=== PATIENT | female | born 1975 | race Caucasian/White ===

== ENCOUNTER → 2018-12-25 | Outpatient (CLI) | payer MEDICAID ==
--- NOTE | 2018-12-25 16:30 | RADIOLOGY REPORT (SQ) ---
EXAM DESCRIPTION: T SPINE AP/LAT COMPLETED DATE/TIME: 12/25/2018 4:12 pm REASON FOR STUDY: CHRONIC MIDLINE THORACIC BACK PAIN M54.6 PAIN IN THORACIC SPINE M54.5 LOW BACK P AIN COMPARISON: None. NUMBER OF VIEWS: Two views. TECHNIQUE: AP and lateral radiographic images acquired of the thoracic spine. LIMITATIONS: None. FINDINGS: MINERALIZATION: Normal. ALIGNMENT: Minimal serpiginous thoracic curvature VERTEBRAE: No fracture or bone lesion. Maintained height, normal segmentation. DISCS: Mild multilevel disc height loss and osteophytosis greatest within the thoracolumbar junction HARDWARE: None in the spine. MEDIASTINUM AND SOFT TISSUES: Normal heart size and aortic contour. No soft tissue abnormality. VISUALIZED LUNG HOFF: Clear. OTHER: Chain linda overlie left upper abdomen. IMPRESSION: 1. No evidence of acute bony abnormality. 2. Mild multilevel degenerative change. TECHNICAL DOCUMENTATION: JOB ID: [id number] [employer]- All Rights Reserved Reading location - IP/workstation name: [email or web address]
--- NOTE | 2018-12-25 16:34 | RADIOLOGY REPORT (SQ) ---
EXAM DESCRIPTION: LUMBAR SPINE COMPLETE COMPLETED DATE/TIME: 12/25/2018 4:13 pm REASON FOR STUDY: CHRONIC MIDLINE LOW BACK PAIN WITHOUT SCIATICA M54.6 PAIN IN THORACIC SPINE M54.5 LOW BACK PAIN COMPARISON: None. NUMBER OF VIEWS: 6 views including obliques. TECHNIQUE: AP, lateral, oblique, and sacral radiographic images acquired of the lumbar spine. LIMITATIONS: None. FINDINGS: MINERALIZATION: Normal. SEGMENTATION: Normal. No transitional anatomy. 5 [id number] lumbar vertebral bodies. ALIGNMENT: Mild dextroconvex curvature of the lumbar spine. VERTEBRAE: Maintained height. Mild multilevel endplate change and osteophytosis. DISCS: Mild disc height loss at the thoracolumbar junction and at L4-5 and L5-S1. Multilevel small o steophytes. POSTERIOR ELEMENTS: No pars defect. No fracture. Lower lumbar facet arthropathy. HARDWARE: None in the spine. PARASPINAL SOFT TISSUES: Normal. PELVIS: Intact as visualized. No fractures or worrisome bone lesions. SI joints intact. OTHER: No other significant finding. IMPRESSION: 1. No acute bony abnormality. 2. Mild disc height loss at the thoracolumbar junction and L4-5 and L5-S1. 3. Lower lumbar facet arthropathy. TECHNICAL DOCUMENTATION: JOB ID: [id number] [employer]- All Rights Reserved Reading location - IP/workstation name: [email or web address]
== END ==
LOC: OD 15:49
PROVIDERS: ATTEND Nurse Practitioner Family
DX: M54.6 Pain in thoracic spine (principal); M54.5 Low back pain
CPT/HCPCS: 72070; 72110

== ENCOUNTER → 2019-02-08 | Outpatient (CLI) | payer MEDICAID ==
--- NOTE | 2019-02-18 14:31 | WOMENS IMAGING REPORT ---
EXAM DESCRIPTION: BILAT SCREENING MAMMO W/CAD COMPLETED DATE/TIME: 02/08/2019 11:27 am REASON FOR STUDY: ROUTINE BILATERAL SCREENING;Z12.31 Z12.31 ENCNTR SCREEN MAMMOGRAM FOR MALIGNANT N EOPLASM OF ED COMPARISON: 2016 EXAM PARAMETERS: Standard craniocaudal and mediolateral oblique views of each breast recorded using digital acquisition. Read with the assistance of CAD. .[email or web address] - [employer] Analyst Version 9.2 LIMITATIONS: None. FINDINGS: No suspicious masses, suspicious calcifications or architectural distortion. No areas of c oncern. IMPRESSION: Negative MAMMOGRAM. BIRADS 1 BREAST DENSITY: b. There are scattered areas of fibroglandular density. BIRAD: ASSESSMENT: 1 NEGATIVE RECOMMENDATION: ROUTINE SCREENING COMMENT: The patient has been notified of the results by letter per MQSA requirements. Additional no tification policies are in place for contacting patient with suspicious or incomplete findings. Quality ID #225: The [employer] recommends an annual screening mammogram for women aged 40 years or over. This facility utilizes a reminder system to ensure that all patients receive reminder letters, and/or direct phone calls for appointments. This includes reminders for routine scr eening mammograms, diagnostic mammograms, or other Breast Imaging Interventions when appropriate. Th is patient will be placed in the appropriate reminder system. TECHNICAL DOCUMENTATION: FINDING NUMBER: (1) ASSESSMENT: (1) JOB ID: [id number] [employer]- All Rights Reserved Reading location - IP/workstation name: [email or web address]
== END ==
LOC: WI 11:01
PROVIDERS: ATTEND Nurse Practitioner Family
DX: Z12.31 Encounter for screening mammogram for malignant neoplasm of breast (principal)
CPT/HCPCS: 77067

== ENCOUNTER → 2019-03-15 | Outpatient (CLI) | payer MEDICAID ==
--- NOTE | 2019-03-15 11:31 | RADIOLOGY REPORT (SQ) ---
EXAM DESCRIPTION: MRI LUMBAR SPINE WITHOUT COMPLETED DATE/TIME: 03/15/2019 9:54 am REASON FOR STUDY: M54.16 RADICULOPATHY, LUMBAR REGION M54.16 RADICULOPATHY, LUMBAR REGION COMPARISON: None. TECHNIQUE: Sagittal and Axial imaging includes T1, T2, STIR and gradient echo sequences. Coronal T2/ HASTE imaging. LIMITATIONS: None. FINDINGS: VISUALIZED UPPER ABDOMEN: Limited evaluation. No acute or suspicious findings suggested. SEGMENTATION: No transitional anatomy. The lowest well-developed disc space is labeled L5-S1. ALIGNMENT: Anatomic. VERTEBRAE: Intact. BONE MARROW: Normal. No marrow replacement or reactive changes. Type 2 Modic endplate changes at L1- 2. DISC SIGNAL: Disc desiccation at L1-2, L4-5 and L5-S1. POSTERIOR ELEMENTS: Generally intact. No pars defect evident. HARDWARE: None in the spine. CORD AND CONUS: Normal in size and signal intensity. Conus medullaris terminates at L1-2. SOFT TISSUES: No aortic aneurysm seen. No bulky retroperitoneal adenopathy or mass. No paraspinal mas s or fluid. L1-L2: Disc desiccation with type 2 Modic endplate changes. There is a circumferential disc bulge wi th larger left paracentral component which likely contacts the traversing nerve roots. No evidence o f high-grade spinal canal stenosis. There is mild bilateral neural foraminal narrowing secondary to disc. L2-L3: No significant spinal stenosis or exit foraminal stenosis. L3-L4: No significant spinal stenosis or exit foraminal stenosis. L4-L5: Mild disc desiccation and height loss. No significant spinal stenosis or exit foraminal sten osis. L5-S1: Mild disc desiccation in height loss. No significant spinal stenosis or exit foraminal stenos is. LOWER THORACIC: Incompletely imaged. No stenosis seen. SACRUM: Visualized upper sacrum intact. OTHER: No other significant findings. IMPRESSION: 1. No acute bony abnormality of the lumbar spine. 2. Chronic Modic type 2 endplate change at L1-2 with disc height loss and circumferential disc bulge . Left paracentral disc component likely contacts the traversing nerve roots at that level. No high -grade spinal canal stenosis or neural foraminal narrowing. 3. Mild additional degenerative changes with level specific findings as above. TECHNICAL DOCUMENTATION: JOB ID: [id number]- All Rights Reserved Reading location - IP/workstation name: [email or web address]
== END ==
LOC: RAD 08:38
PROVIDERS: ATTEND Physician Assistant
DX: M51.17 Intervertebral disc disorders with radiculopathy, lumbosacral region (principal)
CPT/HCPCS: 72148

== ENCOUNTER → 2019-10-02 | Outpatient (CLI) | payer MEDICAID ==
[2019-10-02 08:52] LABS: HEMATOCRIT 39.3 % (36.0-47.0); HEMOGLOBIN 13.3 g/dL (12.0-15.5); MEAN CORPUSCULAR HEMOGLOBIN 29.1 pg (27.0-33.4); MEAN CORPUSCULAR HGB CONC 33.7 g/dL (32.0-36.0); MEAN CORPUSCULAR VOLUME 87 fl (80-97); PLATELET COUNT 252 10^3/uL (150-450); RED BLOOD COUNT 4.55 10^6/uL (3.72-5.28); RED CELL DISTRIBUTION WIDTH 12.7 % (11.5-14.0)
[2019-10-02 09:15] LABS: ALBUMIN 3.1 g/dL (3.5-5.0); ALKALINE PHOSPHATASE 111 U/L (38-126); ANION GAP 8 (5-19); ASPARTATE AMINO TRANSFERASE 14 U/L (14-36); BILIRUBIN,DIRECT 0.3 mg/dL (0.0-0.4); BILIRUBIN,TOTAL 0.5 mg/dL (0.2-1.3); BLOOD UREA NITROGEN 5 mg/dL (7-20); CALCIUM 8.6 mg/dL (8.4-10.2); CARBON DIOXIDE 22 mmol/L (22-30); CHLORIDE 105 mmol/L (98-107); CHOLESTEROL 232.79 mg/dL (0-200); GLUCOSE 89 mg/dL (75-110); POTASSIUM 3.9 mmol/L (3.6-5.0); TRIGLYCERIDES 228 mg/dL (<150)
[2019-10-02 09:28] LABS: DIRECT LDL 174 mg/dL (<100)
[2019-10-02 09:37] LABS: VLDL CHOLESTEROL 45.6 mg/dL (10-31)
== END ==
LOC: OD 07:37
PROVIDERS: ATTEND Physician Assistant
DX: E78.5 Hyperlipidemia, unspecified (principal); I49.3 Ventricular premature depolarization; R94.31 Abnormal electrocardiogram [ECG] [EKG]
CPT/HCPCS: 36415; 80048; 80061; 80076; 83735; 84443; 85027

== ENCOUNTER → 2019-11-14 | Outpatient (CLI) | payer MEDICAID ==
--- NOTE | 2019-11-15 08:59 | DRAGON STRESS TEST REPORT ---
EXERCISE CARDIOLITE STRESS TEST USING SINGLE PHOTON EMMISION COMPUTERIZED TOMOGRAPHIC. DATE OF PROCEDURE: November 14, 2019. INDICATION : Abnormal EKG, increased ventricular ectopy CARDIAC RISK FACTORS: None reported by the patient or by the staff RESTING EKG: Sinus rhythm without any baseline ST-T wave changes. STRESS EKG: No significant ST segment changes noted with LexiScan bolus REASON FOR TERMINATION: Dyspnea, fatigue PROCEDURE REPORT: Baseline heart rate 115 beats per minute with blood pressure of 106/69. She was exercised on standard Kleber protocol. Patient exercised for a total of 7 minutes and 10 seconds. Exercise was stopped because of fatigue and shortness of breath. Patient was noted to have increased ventricular ectopy. One triplet noted during exercise. Multiple couplets were noted. However no significant ST segment changes were noted. CONCLUSIONS: No ST segment changes noted but increased ventricular ectopy with one triplet and frequent ventricular couplets noted. NUCLEAR DATA: At rest the patient was given 14.28 millicuries of technetium 99 sestamibi injected intravenously. As per protocol rest gated SPECT images were obtained. Subsequently the stress dose of 40.9 millicuries of technetium 99 sestamibi was injected intravenously at peak exercise. Patient continued to exercise for 1 additional minute.. As per protocol stress gated images were obtained. NUCLEAR INTERPRETATION: Both raw and processed data were used for interpretation. Visual, qualitative, computer-generated quantitative data was used. There was suboptimal myocardial uptake of technetium compound. Motion artifact and soft tissue attenuations were noted. Increased visceral uptake was noted. No definitive areas of transient perfusion defect noted, No definitive areas of fixed perfusion defect or scars noted. EKG gated imaging showed LV EF at 47%, rest and stress gated EF similar visually. T. I D. ratio was 0.85. Lung heart ratio noted to be somewhat increased at 0.41. No significant extracardiac and abnormal radiotracer activities were noted. RV free wall uptake was noted to be WNL. Abnormal uptake was noted in the left breast tissue area. IMPRESSION: Also refer to comments under nuclear interpretation. Also test results needs to be interpreted in the context of pretest probability. Please note that myocardial uptake was suboptimal. 1. No definitive areas of transient perfusion defect noted. Please note patient had marked increased ventricular ectopic activity with exercise, therefore ischemia could be missed. 2. There is no definitive scintigraphic evidence of myocardial infarction/scar. 3. EKG gated imaging shows borderline depressed left ventricular ejection fraction of approx. 47%. 4. Abnormal uptake noted in the left breast area, could be concerning for malignancy. In addition lung uptake was noted to be on the high side. Clinical correlation requested as worse disease and or balanced ischemia could be missed. In approximately 10% of the cases Lexiscan may not cause adequate vasodilatory stress. RECOMMENDATIONS: Findings about abnormal uptake in the breast tissue was reported to referring physician Penny VASQUEZ at Dr. Quinn Faulkner's office. May consider cardiac CTA for further evaluation as myocardial uptake was somewhat suboptimal. Aggressive risk factor modification and medical management. Further evaluation may be needed if continued symptoms or other high risk indicators are noted on clinical evaluation. Close cardiology follow-up is also recommended. Clinical correlation with echocardiogram derived ejection fraction. Inability to exercise by itself can lead to increased cardiovascular event risks. Consider cardiology consultation and or follow-up if clinically indicated. Dr. Daniel Lopez. MD JULIEN Board certified in cardiology and sleep medicine. Board certified in nuclear cardiology, adult echocardiography. MONI
== END ==
LOC: RAD 07:49
PROVIDERS: ATTEND Physician Assistant
DX: R94.31 Abnormal electrocardiogram [ECG] [EKG] (principal)
CPT/HCPCS: 93017; 78452; A9500; Q9969

== ENCOUNTER → 2019-11-20 | Outpatient (CLI) | payer MEDICAID ==
--- NOTE | 2019-11-20 12:07 | RADIOLOGY REPORT (SQ) ---
EXAM DESCRIPTION: CHEST PA/LATERAL IMAGES COMPLETED DATE/TIME: 11/20/2019 11:41 am REASON FOR STUDY: OTHER NONSPECIFIC ABNORMAL FINDING OF LUNG FIELD COMPARISON: None. EXAM PARAMETERS: NUMBER OF VIEWS: two views TECHNIQUE: Digital Frontal and Lateral radiographic views of the chest acquired. RADIATION DOSE: NA LIMITATIONS: none FINDINGS: LUNGS AND PLEURA: No opacities, masses or pneumothorax. No pleural effusion. MEDIASTINUM AND HILAR STRUCTURES: No masses or contour abnormalities. HEART AND VASCULAR STRUCTURES: Heart normal size. No evidence for failure. BONES: No acute findings. HARDWARE: None in the chest. OTHER: No other significant finding. IMPRESSION: NO SIGNIFICANT RADIOGRAPHIC FINDING IN THE CHEST. TECHNICAL DOCUMENTATION: JOB ID: [id number] 2010 [employer] All Rights Reserved Reading location - IP/workstation name: [email or web address]
== END ==
LOC: OD 11:22
PROVIDERS: ATTEND Physician Assistant
DX: R91.8 Other nonspecific abnormal finding of lung field (principal)
CPT/HCPCS: 71046

== ENCOUNTER → 2019-11-27 | Outpatient (CLI) | payer MEDICAID ==
--- NOTE | 2019-11-28 15:36 | WOMENS IMAGING REPORT ---
EXAM DESCRIPTION: 3D DX MAMMO BILAT; U/S BREAST UNILATERAL, COMPL IMAGES COMPLETED DATE/TIME: 11/27/2019 11:10 am; 11/27/2019 11:58 am REASON FOR STUDY: R92.8 OTHER ABNORMAL AND INCONCLUSIVE FINDINGS ON DIAGNOSTIC IMAGING OF ED; LT BR EAST Z80.3,R92.8 R92.8 OTH ABN AND INCONCLUSIVE FINDINGS ON DX IMAGING OF ED COMPARISON: Mammograms 02/08/2019 EXAM PARAMETERS: Standard craniocaudal and mediolateral oblique views of each breast recorded using digital acquisition and breast tomosynthesis. Additional left breast exaggerated craniocaudad view, left breast 90 mediolateral view acquired with digital mammography and tomosynthesis. Left breast ultrasound was also performed. Read with the assistance of CAD: .[employer] - [employer] Assembler Version 9.2 LIMITATIONS: None. FINDINGS: RIGHT BREAST MASSES: No suspicious masses. CALCIFICATIONS: No new or suspicious calcifications. ARCHITECTURAL DISTORTION: None. ASYMMETRY: None noted. OTHER: Overall increase in density of breast parenchyma, likely related to extensive weight loss this year. LEFT BREAST MASSES: No suspicious masses. CALCIFICATIONS: No new or suspicious calcifications. ARCHITECTURAL DISTORTION: None. ASYMMETRY: None noted. OTHER: Overall increase in density of breast parenchyma, likely related to extensive weight loss this year Left breast ultrasound: Left breast ultrasound was performed. No dominant mass. No cysts. No focal acoustic absorption wor risome for malignancy. No dilated ducts. No focal findings. Comparison ultrasound of the right upp er outer quadrant was performed. No focal findings. IMPRESSION: No mammographic evidence for malignancy bilaterally. No sonographic evidence for malign yuval left breast. BREAST DENSITY: b. There are scattered areas of fibroglandular density. BIRAD: ASSESSMENT: 1 Negative. RECOMMENDATION: RECOMMENDED FOLLOW UP: Please continue bilateral screening mammography/tomosynthesis in November 2020 SPECIFIC INTERVENTION/IMAGING/CONSULTATION RECOMMENDED:No additional intervention/ imaging/consultati on needed at this time. COMMUNICATION:The negative/benign results were communicated to the patient. COMMENT: The patient has been notified of the results by letter per MQSA requirements. Additional no tification policies are in place for contacting patient with suspicious or incomplete findings. Quality ID #225: The [employer] recommends an annual screening mammogram for women aged 40 years or over. This facility utilizes a reminder system to ensure that all patients receive reminder letters, and/or direct phone calls for appointments. This includes reminders for routine scr eening mammograms, diagnostic mammograms, or other Breast Imaging Interventions when appropriate. Th is patient will be placed in the appropriate reminder system. TECHNICAL DOCUMENTATION: FINDING NUMBER: (1) ASSESSMENT: (1) JOB ID: [id number] 2010 [employer]- All Rights Reserved Reading location - IP/workstation name: [id number]
--- NOTE | 2019-11-28 15:36 | WOMENS IMAGING REPORT ---
EXAM DESCRIPTION: 3D DX MAMMO BILAT; U/S BREAST UNILATERAL, COMPL IMAGES COMPLETED DATE/TIME: 11/27/2019 11:10 am; 11/27/2019 11:58 am REASON FOR STUDY: R92.8 OTHER ABNORMAL AND INCONCLUSIVE FINDINGS ON DIAGNOSTIC IMAGING OF ED; LT BR EAST Z80.3,R92.8 R92.8 OTH ABN AND INCONCLUSIVE FINDINGS ON DX IMAGING OF DE COMPARISON: Mammograms 02/08/2019 EXAM PARAMETERS: Standard craniocaudal and mediolateral oblique views of each breast recorded using digital acquisition and breast tomosynthesis. Additional left breast exaggerated craniocaudad view, left breast 90 mediolateral view acquired with digital mammography and tomosynthesis. Left breast ultrasound was also performed. Read with the assistance of CAD: .[employer] - [employer] [facility] Room Physician Version 9.2 LIMITATIONS: None. FINDINGS: RIGHT BREAST MASSES: No suspicious masses. CALCIFICATIONS: No new or suspicious calcifications. ARCHITECTURAL DISTORTION: None. ASYMMETRY: None noted. OTHER: Overall increase in density of breast parenchyma, likely related to extensive weight loss this year. LEFT BREAST MASSES: No suspicious masses. CALCIFICATIONS: No new or suspicious calcifications. ARCHITECTURAL DISTORTION: None. ASYMMETRY: None noted. OTHER: Overall increase in density of breast parenchyma, likely related to extensive weight loss this year Left breast ultrasound: Left breast ultrasound was performed. No dominant mass. No cysts. No focal acoustic absorption wor risome for malignancy. No dilated ducts. No focal findings. Comparison ultrasound of the right upp er outer quadrant was performed. No focal findings. IMPRESSION: No mammographic evidence for malignancy bilaterally. No sonographic evidence for malign yuval left breast. BREAST DENSITY: b. There are scattered areas of fibroglandular density. BIRAD: ASSESSMENT: 1 Negative. RECOMMENDATION: RECOMMENDED FOLLOW UP: Please continue bilateral screening mammography/tomosynthesis in November 2020 SPECIFIC INTERVENTION/IMAGING/CONSULTATION RECOMMENDED:No additional intervention/ imaging/consultati on needed at this time. COMMUNICATION:The negative/benign results were communicated to the patient. COMMENT: The patient has been notified of the results by letter per MQSA requirements. Additional no tification policies are in place for contacting patient with suspicious or incomplete findings. Quality ID #225: The [employer] recommends an annual screening mammogram for women aged 40 years or over. This facility utilizes a reminder system to ensure that all patients receive reminder letters, and/or direct phone calls for appointments. This includes reminders for routine scr eening mammograms, diagnostic mammograms, or other Breast Imaging Interventions when appropriate. Th is patient will be placed in the appropriate reminder system. TECHNICAL DOCUMENTATION: FINDING NUMBER: (1) ASSESSMENT: (1) JOB ID: [id number] 2010 [employer]- All Rights Reserved Reading location - IP/workstation name: [id number]
== END ==
LOC: WI 09:46
PROVIDERS: ATTEND Physician Assistant
DX: R92.8 Other abnormal and inconclusive findings on diagnostic imaging of breast (principal)
CPT/HCPCS: 76641; 77066; G0279; 77062

== ENCOUNTER 2019-11-30 06:45 | Inpatient (IN) | payer MEDICAID ==
--- NOTE | 2019-11-30 08:19 | ER Document Report ---
ED General - General Chief Complaint: Abdominal Pain Stated Complaint: abd pain severe bleeding Time Seen by Provider: 11/30/19 08:18 TRAVEL OUTSIDE OF THE [place] IN LAST 30 DAYS: No - HPI Notes: 44-year-old female , LMP 01/2019, last was 22 years ago,had a gastric sleeve in 2018 presents to the emergency room today for evaluation of epigastric abdominal pain that radiates to her lower back that started at 2300 yesterday. Patient states at 230 this morning she had some vaginal bleeding as well as dysuria and then she states she was unable to void. Reports her last pelvic exam was February 2019. Patient states she has irregular periods, states she has had irregular periods since she can remember. Patient is sexually active, has not taken any test, reports her last bowel movement was yesterday, no melena. Patient reports her pain is 5/5. Vomiting, diarrhea. Patient reports epigastric pain is constant. - Related Data Allergies/Adverse Reactions: benzonatate [From Tessalon Perles] Allergy (Unknown, Verified 11/30/19 07:11) diphenhydramine [From Benadryl] Allergy (Unknown, Verified 11/30/19 07:11) Penicillins Allergy (Unknown, Verified 11/30/19 07:11) pseudoephedrine [From Sudafed] Allergy (Unknown, Verified 11/30/19 07:11) triprolidine [From Actifed] Allergy (Unknown, Verified 11/30/19 07:11) Past Medical History - General Information source: Patient - Social History Smoking Status: Never Smoker Chew tobacco use (# tins/day): No Frequency of alcohol use: None Drug Abuse: None Family History: Reviewed & Not Pertinent Patient has homicidal ideation: No Review of Systems - Review of Systems Constitutional: No symptoms reported EENT: No symptoms reported Cardiovascular: No symptoms reported Respiratory: No symptoms reported Gastrointestinal: See HPI Genitourinary: No symptoms reported Female Genitourinary: No symptoms reported Musculoskeletal: No symptoms reported Skin: No symptoms reported Hematologic/Lymphatic: No symptoms reported Neurological/Psychological: No symptoms reported Physical Exam - Vital signs Vitals: Temp Pulse Resp BP Pulse Ox 97.9 F 106 H 18 153/102 H 106 H 11/30/19 06:51 11/30/19 06:51 11/30/19 06:51 11/30/19 06:51 11/30/19 06:51 - Respiratory Respiratory status: No respiratory distress - Cardiovascular Rhythm: Regular Heart sounds: Normal auscultation Murmur: No - Abdominal Inspection: Gravid female Distension: Distended - Genitourinary Notes: no visualized - Back Back: Normal, Nontender - Extremities General upper extremity: Normal inspection General lower extremity: Normal inspection - Neurological Neuro grossly intact: Yes Cognition: Normal Orientation: AAOx4 Course - Re-evaluation Re-evalutation: 11/30/19 12:44 Afebrile vital stable no distress. Ordered ultrasound to assess if patient has a that is viable or if this is a nonpregnancy related abdominal pain. Patient states that she has not had a menstrual cycle since January 2019 but typically only has 2 periods a year. She is sexually active without any type of barrier method to prevent , she has not taken a home test to determine if she is or not. Ultrasound called at 10 AM, patient is 39 weeks and baby's head is in the vaginal canal, Dr. Ki Falk made aware of patients status and patient brought right to L&D from /. nurse called with report 11/30/19 12:47 - Vital Signs Vital signs: Temp Pulse Resp BP Pulse Ox 97.9 F 106 H 18 153/102 H 100 11/30/19 07:05 11/30/19 06:51 11/30/19 06:51 11/30/19 06:51 11/30/19 09:20 - Laboratory Result Diagrams: 11/30/19 11:05 11/30/19 09:00 Laboratory results interpreted by me: 11/30/19 11/30/19 09:00 09:00 WBC 18.6 H RBC 5.30 H Lymph % (Auto) 6.7 L Absolute Neuts (auto) 16.5 H Seg Neutrophils % 88.8 H Sodium 135.4 L Carbon Dioxide 15 L Glucose 129 H Direct Bilirubin 1.0 H AST 145 H ALT 50 H Alkaline Phosphatase 351 H Beta HCG, Quant 26616.00 H Discharge - Discharge Clinical Impression: Active labor Condition: Stable Disposition: LABOR CHECK
[2019-11-30] MEDS ORDERED: ACETAMINOPHEN 325 MG TABLET PO ONE (09:08)
[2019-11-30 09:14] LABS: ABSOLUTE BASOPHILS # (AUTO) 0.1 10^3/uL (0.0-0.2); ABSOLUTE LYMPHOCYTES (AUTO) 1.2 10^3/uL (0.5-4.7); ABSOLUTE MONOCYTES (AUTO) 0.8 10^3/uL (0.1-1.4); ABSOLUTE NEUT (AUTO) 16.5 10^3/uL (1.7-8.2); BASOPHILS % (AUTO) 0.5 % (0-2); HEMATOCRIT 44.1 % (36.0-47.0); HEMOGLOBIN 15.3 g/dL (12.0-15.5); LYMPHOCYTES % (AUTO) 6.7 % (13-45); MEAN CORPUSCULAR HEMOGLOBIN 28.9 pg (27.0-33.4); MEAN CORPUSCULAR HGB CONC 34.7 g/dL (32.0-36.0); MEAN CORPUSCULAR VOLUME 83 fl (80-97); PLATELET COUNT 213 10^3/uL (150-450); SEGMENTED NEUTROPHILS % (AUTO) 88.8 % (42-78); TOTAL CELLS COUNTED % (AUTO) 100 %; WHITE BLOOD COUNT 18.6 10^3/uL (4.0-10.5)
[2019-11-30 09:31] LABS: ALBUMIN 3.7 g/dL (3.5-5.0); ALKALINE PHOSPHATASE 351 U/L (38-126); ANION GAP 13 (5-19); ASPARTATE AMINO TRANSFERASE 145 U/L (14-36); BILIRUBIN,TOTAL 1.3 mg/dL (0.2-1.3); BLOOD UREA NITROGEN 12 mg/dL (7-20); CALCIUM 9.4 mg/dL (8.4-10.2); CARBON DIOXIDE 15 mmol/L (22-30); CHLORIDE 107 mmol/L (98-107); GLUCOSE 129 mg/dL (75-110); POTASSIUM 4.2 mmol/L (3.6-5.0); TOTAL PROTEIN 7.2 g/dL (6.3-8.2)
[2019-11-30] MEDS ORDERED: LIDOCAINE 1% INJ-PF (10 MG/ML) 30 ML SDV ONE (10:09)
[2019-11-30] MEDS ORDERED: OXYTOCIN 10 UNIT/ML VIAL ONE (10:09)
[2019-11-30] MEDS ORDERED: MISOPROSTOL 0.2 MG TABLET ONE (10:09)
[2019-11-30] MEDS ORDERED: OXYTOCIN/0.9 % SODIUM CHLORIDE 30 UNIT/500 ML RTUINJ ONE (10:10)
[2019-11-30] MEDS ORDERED: LABETALOL HCL INJ 20 MG/4 ML DISP.SYRIN IV ONE (10:21)
[2019-11-30] MEDS ORDERED: RINGERS SOLUTION,LACTATED 1,000 ML IV PRN (10:38)
[2019-11-30] MEDS ORDERED: HYDROCODONE/ACETAMINOPHEN 5-325 MG TABLET ONE (11:01)
[2019-11-30] MEDS ORDERED: DIBUCAINE 1% OINTMENT 28 GM TP PRN (11:02)
[2019-11-30] MEDS ORDERED: PSEUDOEPHEDRINE HCL 30 MG TABLET PO PRN (11:02)
[2019-11-30] MEDS ORDERED: ACETAMINOPHEN WITH CODEINE #3 TABLET PO PRN (11:02)
[2019-11-30] MEDS ORDERED: PROMETHAZINE HCL 25 MG SUPP.RECT PR PRN (11:02)
[2019-11-30] MEDS ORDERED: OXYTOCIN/0.9 % SODIUM CHLORIDE 30 UNIT/500 ML RTUINJ IV PRN (11:02)
[2019-11-30] MEDS ORDERED: NA PHOS,M-B/NA PHOS,DI-BA (ADULT) 133 ML ENEMA PR PRN (11:02)
[2019-11-30] MEDS ORDERED: PROMETHAZINE HCL INJ 25 MG/1 ML VIAL IV PRN (11:02)
[2019-11-30] MEDS ORDERED: DIPHENHYDRAMINE HCL 25 MG CAPSULE PO PRN (11:02)
[2019-11-30] MEDS ORDERED: PROMETHAZINE HCL 25 MG TABLET PO PRN (11:02)
[2019-11-30] MEDS ORDERED: BENZOCAINE/MENTHOL AEROSOL SPRAY 56 ML TOP PRN (11:02)
[2019-11-30] MEDS ORDERED: ACETAMINOPHEN 325 MG TABLET PO PRN (11:02)
[2019-11-30] MEDS ORDERED: ACETAMINOPHEN 650 MG SUPP.RECT PR PRN (11:02)
[2019-11-30] MEDS ORDERED: ZOLPIDEM TARTRATE 5 MG TABLET PO PRN (11:02)
[2019-11-30] MEDS ORDERED: MAGNESIUM HYDROXIDE SUSP 30 ML UDCUP PO PRN (11:02)
[2019-11-30] MEDS ORDERED: DIPH/PERTUSS(ACELL)/TETANUS VAC/PF 0.5 ML SYR (>=10YO) IM PRN (11:02)
[2019-11-30] MEDS ORDERED: HYDROCODONE/ACETAMINOPHEN 5-325 MG TABLET PO PRN (11:02)
[2019-11-30] MEDS ORDERED: MEASLES,MUMPS&RUBELLA VACC/PF 0.5 ML VIAL SUBCUT PRN (11:02)
[2019-11-30] MEDS ORDERED: GLYCERIN/WITCH HAZEL LEAF 1 EACH MED..WIPE TP PRN (11:02)
[2019-11-30 11:25] LABS: HEMATOCRIT 42.9 % (36.0-47.0); HEMOGLOBIN 14.4 g/dL (12.0-15.5); MEAN CORPUSCULAR HEMOGLOBIN 28.2 pg (27.0-33.4); MEAN CORPUSCULAR HGB CONC 33.5 g/dL (32.0-36.0); MEAN CORPUSCULAR VOLUME 84 fl (80-97); PLATELET COUNT 173 10^3/uL (150-450); RED BLOOD COUNT 5.11 10^6/uL (3.72-5.28); RED CELL DISTRIBUTION WIDTH 13.9 % (11.5-14.0); WHITE BLOOD COUNT 18.8 10^3/uL (4.0-10.5)
[2019-11-30 11:40] LABS: APPEARANCE,URINE SLIGHTLY-CLOUDY; BILIRUBIN,URINE NEGATIVE (NEGATIVE); COLOR,URINE AMBER; GLUCOSE, URINE NEGATIVE (NEGATIVE); KETONES,URINE 20 mg/dL (NEGATIVE); LEUKOCYTE ESTERASE,URINE NEGATIVE (NEGATIVE); NITRITE,URINE NEGATIVE (NEGATIVE); PROTEIN,URINE 100 mg/dL (NEGATIVE); URINE SPECIFIC GRAVITY 1.026
--- NOTE | 2019-11-30 11:45 | RADIOLOGY REPORT (SQ) ---
EXAM DESCRIPTION: U/S ABDOMEN LIMITED W/O DOP IMAGES COMPLETED DATE/TIME: 11/30/2019 11:13 am REASON FOR STUDY: epigastric, RUQ abd pain since 2300 11/28 COMPARISON: None. TECHNIQUE: Dynamic and static grayscale images acquired of the abdomen and recorded on PACS. Additio nal selected color Doppler and spectral images recorded. LIMITATIONS: None. FINDINGS: PANCREAS: Not seen. Poor acoustical window. LIVER: No masses. Echotexture normal. LIVER VASCULATURE: Normal directional flow of the main portal vein and hepatic veins. GALLBLADDER: Distended gallbladder. Multiple stones and sludge. Pericholecystic fluid. 2 mm wall t hickness. ULTRASOUND-DETECTED BLANCA'S SIGN: Positive. INTRAHEPATIC DUCTS AND COMMON DUCT: CBD and intrahepatic ducts normal caliber. No filling defects. INFERIOR VENA CAVA: Normal flow. AORTA: No aneurysm. RIGHT KIDNEY: Normal size. Normal echogenicity. No solid or suspicious masses. No hydronephrosis. No calcifications. PERITONEAL AND RIGHT PLEURAL SPACE: No ascites or effusions. OTHER: No other significant findings. IMPRESSION: Cholelithiasis and cholecystitis TECHNICAL DOCUMENTATION: JOB ID: [id number] 2010 [employer]- All Rights Reserved Reading location - IP/workstation name: [email or web address]
--- NOTE | 2019-11-30 11:47 | RADIOLOGY REPORT (SQ) ---
EXAM DESCRIPTION: U/S OB LIMITED IMAGES COMPLETED DATE/TIME: 11/30/2019 11:13 am REASON FOR STUDY: vaginal bleeding and abd pain this am. lmp 01/24. COMPARISON: None. TECHNIQUE: Limited transabdominal grayscale ultrasound for evaluation of specific requested obstetri yaz parameters. LIMITATIONS: None. FINDINGS: CERVICAL LENGTH: Completely dilated . FHR: 136 beats per minute. PRESENTATION: Cephalic. Head in the vaginal canal PLACENTA: Not assessed ANATOMY: Not assessed OTHER: Active labor. 39 weeks 3 days. IMPRESSION: Active labor 39 weeks 3 days. heart tones 136. head in the vaginal canal. Trimester of : 3rd trimester TECHNICAL DOCUMENTATION: JOB ID: [id number] 2010 [employer]- All Rights Reserved Reading location - IP/workstation name: [email or web address]
[2019-11-30] MEDS ORDERED: CLINDAMYCIN 900 MG/D5W RTU 900 MG/50 ML RTUPB IV ONE (11:49)
[2019-11-30 11:58] LABS: URINE CREATININE 206.8 mg/dL (15-278); URINE PROTEIN 198.3 mg/dL (<12)
[2019-11-30 12:03] LABS: ABSOLUTE LYMPHOCYTES# (MANUAL) 1.3 10^3/uL (0.5-4.7); ABSOLUTE MONOCYTES # (MANUAL) 0.9 10^3/uL (0.1-1.4); BAND NEUTROPHILS % (MANUAL) 1 % (3-5); BASOPHILS % (MANUAL) 0 % (0-2); EOSINOPHILS % (MANUAL) 0 % (0-6); LYMPHOCYTES % (MANUAL) 7 % (13-45); MONOCYTES % (MANUAL) 5 % (3-13); SEGMENTED NEUTROPHILS % (MAN) 87 % (42-78); TOTAL CELLS COUNTED 100
[2019-11-30 12:04] LABS: RBC MORPHOLOGY COMMENT NORMO-CYTIC/CHROMIC
[2019-11-30 12:04] LABS: URINE AMPHETAMINES SCREEN NEGATIVE; URINE BARBITURATES SCREEN NEGATIVE; URINE BENZODIAZEPINES SCREEN NEGATIVE; URINE COCAINE SCREEN NEGATIVE; URINE MARIJUANA (THC) SCREEN NEGATIVE; URINE METHADONE SCREEN NEGATIVE; URINE PHENCYCLIDINE SCREEN NEGATIVE
[2019-11-30 12:05] LABS: PLATELET CLUMPS PRESENT; PLATELET COMMENT ADEQUATE
[2019-11-30] MEDS ORDERED: LABETALOL HCL 200 MG TABLET ONE (12:39)
[2019-11-30 12:53] LABS: CHLAM PCR NOT DETECTED (NOT DETECT)
[2019-11-30] MEDS: CLINDAMYCIN 900 MG/D5W RTU 900 MG/50 ML RTUPB IV SCH ×2 (13:15→21:32)
[2019-11-30] MEDS: DOCUSATE SODIUM 100 MG CAPSULE PO SCH (19:12)
[2019-11-30] MEDS: FERROUS SULFATE 325 MG TABLET PO SCH (19:12)
[2019-11-30] MEDS: FAMOTIDINE 20 MG TABLET PO SCH (21:31)
[2019-11-30] MEDS ORDERED: LABETALOL HCL 200 MG TABLET PO SCH ×2 (22:00)
[2019-12-01] MEDS: CLINDAMYCIN 900 MG/D5W RTU 900 MG/50 ML RTUPB IV SCH (05:21)
[2019-12-01 08:11] LABS: HEMATOCRIT 34.5 % (36.0-47.0); HEMOGLOBIN 11.8 g/dL (12.0-15.5); MEAN CORPUSCULAR HEMOGLOBIN 28.5 pg (27.0-33.4); MEAN CORPUSCULAR HGB CONC 34.2 g/dL (32.0-36.0); MEAN CORPUSCULAR VOLUME 84 fl (80-97); PLATELET COUNT 188 10^3/uL (150-450); RED BLOOD COUNT 4.14 10^6/uL (3.72-5.28); WHITE BLOOD COUNT 20.8 10^3/uL (4.0-10.5)
[2019-12-01] MEDS: PRENATAL VITAMIN W DHA CAPSULE PO SCH (10:16)
--- NOTE | 2019-12-01 10:16 | PDOC PROGRESS REPORT ---
Subjective-OB Progress Note for:: 12/01/19 - PP Day #1, pt doing well, no PNC w/ this . Elevated LFT's noted w/ some high BP's while in labor. A+, Rubella immune. . Physical Exam (OB) Vital Signs: Temp Pulse Resp BP Pulse Ox 97.8 F 81 18 121/70 99 12/01/19 08:57 12/01/19 08:00 12/01/19 08:00 12/01/19 08:00 12/01/19 08:00 Intake & Output 11/30/19 12/01/19 12/02/19 06:59 06:59 06:59 Intake Total 2500 Balance 2500 Weight 95.368 kg - General General Appearance: Appears well, Alert In distress: None - PIH/Pre-Eclampsia DTR's: 2 + Clonus: Negative Headache: Absent Epigastric Pain: No Visual Changes: No - Maternal Morbidity 59. Maternal Morbidity (serious complications experinced by the mother associated with labor and delivery: None of the above - Lochia Lochia Amount: Scant < 10 ml Lochia Color: Rubra/Red - Abdomen Description: Soft, Round Hernia Present: No Fundal Description: Firm, Midline Fundal Height: u/u - u/2 - Respiratory Respiratory Status: No respiratory distress - Abdominal Distension: No distension Tenderness: Nontender - Genitourinary Genitourinary Note: voiding - Extremities Upper extremity: Normal inspection Lower extremities: Normal inspection - Neurological Cognition: Normal Orientation: AAOx4 - Psychological Associated symptoms: Normal affect, Normal mood - Skin Skin Temperature: Warm Skin Moisture: Dry Objective-Diagnostic Laboratory: 12/01/19 07:36 11/30/19 09:00 11/30/19 11/30/19 11/30/19 10:20 11:05 11:05 WBC 18.8 H RBC 5.11 Hgb 14.4 Hct 42.9 MCV 84 MCH 28.2 MCHC 33.5 RDW 13.9 Plt Count 173 Seg Neutrophils % Not Reportable Urine Color LEI Urine Appearance SLIGHTLY-CLOUDY Urine pH 5.0 Ur Specific [place] 1.026 Urine Protein 100 H Urine Glucose (UA) NEGATIVE Urine Ketones 20 H Urine Blood SMALL H Urine Nitrite NEGATIVE Ur Leukocyte Esterase NEGATIVE Urine WBC (Auto) 3 Urine RBC (Auto) 12 Blood Type A POSITIVE Antibody Screen NEGATIVE 12/01/19 07:36 WBC 20.8 H RBC 4.14 Hgb 11.8 L D Hct 34.5 L MCV 84 MCH 28.5 MCHC 34.2 RDW 14.0 Plt Count 188 Seg Neutrophils % Urine Color Urine Appearance Urine pH Ur Specific [place] Urine Protein Urine Glucose (UA) Urine Ketones Urine Blood Urine Nitrite Ur Leukocyte Esterase Urine WBC (Auto) Urine RBC (Auto) Blood Type Antibody Screen Assessment and Plan(PN) - Assessment and Plan (1) No care in current Qualifiers: Trimester: third trimester Qualified Code(s): O09.33 - Supervision of with insufficient care, third trimester Is this a current diagnosis for this admission?: Yes (2) Elevated liver enzymes Is this a current diagnosis for this admission?: Yes (3) Advanced maternal age (AMA), 40 years or greater Is this a current diagnosis for this admission?: Yes (4) Active labor Is this a current diagnosis for this admission?: Yes (5) Hx of bariatric surgery Is this a current diagnosis for this admission?: Yes Plan:: Routine PP orders, will Rpt LFT's in the am. Ambulation encouraged. - Time Spent with Patient Time with patient: Less than 15 minutes Medications reviewed and adjusted accordingly: Yes - Disposition Anticipated Discharge Disposition: Home, Self Care Anticipated Discharge Timeframe: within 24 hours
[2019-12-01] MEDS: FAMOTIDINE 20 MG TABLET PO SCH ×2 (10:17→21:40)
[2019-12-01] MEDS: FERROUS SULFATE 325 MG TABLET PO SCH ×2 (10:17→17:35)
[2019-12-01] MEDS: SENNOSIDES/DOCUSATE 8.6-50 MG 1 EACH TABLET PO SCH (10:17)
[2019-12-01] MEDS: DOCUSATE SODIUM 100 MG CAPSULE PO SCH ×2 (10:17→17:35)
[2019-12-02 07:59] LABS: ABSOLUTE LYMPHOCYTES (AUTO) 3.6 10^3/uL (0.5-4.7); ABSOLUTE MONOCYTES (AUTO) 0.7 10^3/uL (0.1-1.4); ABSOLUTE NEUT (AUTO) 8.5 10^3/uL (1.7-8.2); BASOPHILS % (AUTO) 0.3 % (0-2); EOSINOPHILS % (AUTO) 0.3 % (0-6); HEMATOCRIT 32.9 % (36.0-47.0); LYMPHOCYTES % (AUTO) 28.1 % (13-45); MEAN CORPUSCULAR HEMOGLOBIN 28.1 pg (27.0-33.4); MEAN CORPUSCULAR HGB CONC 33.3 g/dL (32.0-36.0); MEAN CORPUSCULAR VOLUME 84 fl (80-97); MONOCYTES % (AUTO) 5.1 % (3-13); PLATELET COUNT 221 10^3/uL (150-450); RED BLOOD COUNT 3.91 10^6/uL (3.72-5.28); RED CELL DISTRIBUTION WIDTH 14.3 % (11.5-14.0); SEGMENTED NEUTROPHILS % (AUTO) 66.2 % (42-78); TOTAL CELLS COUNTED % (AUTO) 100 %; WHITE BLOOD COUNT 12.9 10^3/uL (4.0-10.5)
[2019-12-02] MEDS ORDERED: INFLUENZA QUAD (6MOS+) 2020-21 VAC 0.5 ML SYR IM ONE (08:00)
[2019-12-02 08:05] LABS: ALBUMIN 2.7 g/dL (3.5-5.0); ALKALINE PHOSPHATASE 161 U/L (38-126); ASPARTATE AMINO TRANSFERASE 98 U/L (14-36); BILIRUBIN,DIRECT 0.5 mg/dL (0.0-0.4); BILIRUBIN,TOTAL 0.7 mg/dL (0.2-1.3); TOTAL PROTEIN 4.9 g/dL (6.3-8.2)
[2019-12-02] MEDS: SENNOSIDES/DOCUSATE 8.6-50 MG 1 EACH TABLET PO SCH (09:46)
[2019-12-02] MEDS: FAMOTIDINE 20 MG TABLET PO SCH (09:46)
[2019-12-02] MEDS: DOCUSATE SODIUM 100 MG CAPSULE PO SCH (09:46)
[2019-12-02] MEDS: PRENATAL VITAMIN W DHA CAPSULE PO SCH (09:46)
[2019-12-02] MEDS: FERROUS SULFATE 325 MG TABLET PO SCH (09:46)
--- NOTE | 2019-12-02 11:10 | PDOC DISCHARGE SUMMARY ---
Impression - Admit/DC Date/PCP Admission Date/Primary Care Provider: 11/30/19 10:19 REYNA BONDS Discharge Date: 12/02/19 - Discharge Diagnosis (1) Normal vaginal delivery Is this a current diagnosis for this admission?: Yes (2) Active labor Is this a current diagnosis for this admission?: Yes (3) Advanced maternal age (AMA), 40 years or greater Is this a current diagnosis for this admission?: Yes (4) Hx of bariatric surgery Is this a current diagnosis for this admission?: Yes - Additional Information Discharge Diet: Regular Discharge Activity: Balance Activity w/Rest, Pelvic Rest Referrals: HYACINTH OVALLES FNP-C [Primary Care Provider] - Follow up as needed Home Medications: Acetaminophen [Tylenol 325 mg Tablet] 650 mg PO Q4HP PRN tablet 12/02/19 Vit/Dha [ Multi + Dha Capsule] 1 cap PO DAILY capsule 12/02/19 Hospital Course 59. Maternal Morbidity (serious complications experinced by the mother associated with labor and delivery: None of the above Results Laboratory Results: WBC 12.9 10^3/uL (4.0-10.5) H 12/02/19 07:18 RBC 3.91 10^6/uL (3.72-5.28) 12/02/19 07:18 Hgb 11.0 g/dL (12.0-15.5) L 12/02/19 07:18 Hct 32.9 % (36.0-47.0) L 12/02/19 07:18 MCV 84 fl (80-97) 12/02/19 07:18 MCH 28.1 pg (27.0-33.4) 12/02/19 07:18 MCHC 33.3 g/dL (32.0-36.0) 12/02/19 07:18 RDW 14.3 % (11.5-14.0) H 12/02/19 07:18 Plt Count 221 10^3/uL (150-450) 12/02/19 07:18 Lymph % (Auto) 28.1 % (13-45) 12/02/19 07:18 [place] % (Auto) 5.1 % (3-13) 12/02/19 07:18 Eos % (Auto) 0.3 % (0-6) 12/02/19 07:18 Baso % (Auto) 0.3 % (0-2) 12/02/19 07:18 Absolute Neuts (auto) 8.5 10^3/uL (1.7-8.2) H 12/02/19 07:18 Absolute Lymphs (auto) 3.6 10^3/uL (0.5-4.7) 12/02/19 07:18 Absolute Monos (auto) 0.7 10^3/uL (0.1-1.4) 12/02/19 07:18 Absolute Eos (auto) 0.0 10^3/uL (0.0-0.6) 12/02/19 07:18 Absolute Basos (auto) 0.0 10^3/uL (0.0-0.2) 12/02/19 07:18 Total Counted 100 11/30/19 11:05 Seg Neutrophils % 66.2 % (42-78) 12/02/19 07:18 Seg Neuts % (Manual) 87 % (42-78) H 11/30/19 11:05 Band Neutrophils % 1 % (3-5) L 11/30/19 11:05 Lymphocytes % (Manual) 7 % (13-45) L 11/30/19 11:05 Monocytes % (Manual) 5 % (3-13) 11/30/19 11:05 Eosinophils % (Manual) 0 % (0-6) 11/30/19 11:05 Basophils % (Manual) 0 % (0-2) 11/30/19 11:05 Abs Neuts (Manual) 16.5 10^3/uL (1.7-8.2) H 11/30/19 11:05 Abs Lymphs (Manual) 1.3 10^3/uL (0.5-4.7) 11/30/19 11:05 Abs Monocytes (Manual) 0.9 10^3/uL (0.1-1.4) 11/30/19 11:05 Absolute Eos (Manual) 0.0 10^3/uL (0.0-0.6) 11/30/19 11:05 Abs Basophils (Manual) 0.0 10^3/uL (0.0-0.2) 11/30/19 11:05 Clumped Platelets PRESENT 11/30/19 11:05 Platelet Comment ADEQUATE 11/30/19 11:05 RBC Morph Comment NORMO-CYTIC/CHROMIC 11/30/19 11:05 Sodium 135.4 mmol/L (137-145) L 11/30/19 09:00 Potassium 4.2 mmol/L (3.6-5.0) 11/30/19 09:00 Chloride 107 mmol/L (98-107) 11/30/19 09:00 Carbon Dioxide 15 mmol/L (22-30) L 11/30/19 09:00 Anion Gap 13 (5-19) 11/30/19 09:00 BUN 12 mg/dL (7-20) 11/30/19 09:00 Creatinine 0.95 mg/dL (0.52-1.25) 11/30/19 09:00 Est GFR ( Amer) > 60 (>60) 11/30/19 09:00 Est GFR (MDRD) Non-Af > 60 (>60) 11/30/19 09:00 Glucose 129 mg/dL (75-110) H 11/30/19 09:00 Calcium 9.4 mg/dL (8.4-10.2) 11/30/19 09:00 Total Bilirubin 0.7 mg/dL (0.2-1.3) 12/02/19 07:18 Direct Bilirubin 0.5 mg/dL (0.0-0.4) H 12/02/19 07:18 Neonat Total Bilirubin Not Reportable 12/02/19 07:18 Neonat Direct Bilirubin Not Reportable 12/02/19 07:18 Neonat Indirect Bili Not Reportable 12/02/19 07:18 AST 98 U/L (14-36) H 12/02/19 07:18 ALT 50 U/L (<35) H 12/02/19 07:18 Alkaline Phosphatase 161 U/L (38-126) H 12/02/19 07:18 Total Protein 4.9 g/dL (6.3-8.2) L 12/02/19 07:18 Albumin 2.7 g/dL (3.5-5.0) L 12/02/19 07:18 Lipase 132.3 U/L (23-300) 11/30/19 09:00 Beta HCG, Quant 19976.00 mIU/mL (0.0-6.15) H 11/30/19 09:00 Total Beta HCG POSITIVE (NEGATIVE) 11/30/19 09:00 Urine Color LEI 11/30/19 10:20 Urine Appearance SLIGHTLY-CLOUDY 11/30/19 10:20 Urine pH 5.0 (5.0-9.0) 11/30/19 10:20 Ur Specific [place] 1.026 11/30/19 10:20 Urine Protein 100 mg/dL (NEGATIVE) H 11/30/19 10:20 Urine Glucose (UA) NEGATIVE mg/dL (NEGATIVE) 11/30/19 10:20 Urine Ketones 20 mg/dL (NEGATIVE) H 11/30/19 10:20 Urine Blood SMALL (NEGATIVE) H 11/30/19 10:20 Urine Nitrite NEGATIVE (NEGATIVE) 11/30/19 10:20 Urine Bilirubin NEGATIVE (NEGATIVE) 11/30/19 10:20 Urine Urobilinogen 4.0 mg/dL (<2.0) H 11/30/19 10:20 Ur Leukocyte Esterase NEGATIVE (NEGATIVE) 11/30/19 10:20 Urine WBC (Auto) 3 /HPF 11/30/19 10:20 Urine RBC (Auto) 12 /HPF 11/30/19 10:20 Squamous Epi Cells Auto 1 /HPF 11/30/19 10:20 U Non-Squamous Epis Auto 1 /HPF 11/30/19 10:20 Urine Mucus (Auto) MOD /LPF 11/30/19 10:20 Urine Creatinine 206.8 mg/dL (15-278) 11/30/19 10:20 Protein/Creatinin Ratio 1.0 mg/mg (0.0-0.2) H 11/30/19 10:20 Urine Total Protein 198.3 mg/dL (<12) H 11/30/19 10:20 Urine Ascorbic Acid NEGATIVE (NEGATIVE) 11/30/19 10:20 Urine Opiates Screen NEGATIVE 11/30/19 10:20 Urine Methadone Screen NEGATIVE 11/30/19 10:20 Ur Barbiturates Screen NEGATIVE 11/30/19 10:20 Ur Phencyclidine Scrn NEGATIVE 11/30/19 10:20 Ur Amphetamines Screen NEGATIVE 11/30/19 10:20 U Benzodiazepines Scrn NEGATIVE 11/30/19 10:20 Urine Cocaine Screen NEGATIVE 11/30/19 10:20 U Marijuana (THC) Screen NEGATIVE 11/30/19 10:20 RPR NONREACTIVE (NONREACTIVE) 11/30/19 11:05 Chlamydia DNA (PCR) NOT DETECTED (NOT DETECT) 11/30/19 10:20 HIV 1&2 Antibody NEGATIVE (NEGATIVE) 11/30/19 11:05 N.gonorrhoeae DNA (PCR) NOT DETECTED (NOT DETECT) 11/30/19 10:20 Rubella IgG Antibody 114.00 IU/mL 11/30/19 11:05 Rubella IgG Ab Interp POSITIVE 11/30/19 11:05 Blood Type A POSITIVE 11/30/19 11:05 Antibody Screen NEGATIVE 11/30/19 11:05 Impressions: Abdomen Ultrasound 11/30/19 09:07 IMPRESSION: Cholelithiasis and cholecystitis Obstetrics Ultrasound 11/30/19 09:07 IMPRESSION: Active labor 39 weeks 3 days. heart tones 136. head in the vaginal canal. Trimester of : 3rd trimester Plan Health Concerns: blood pressure elevated during labor. pt has other dr merino this week and will get her blood pressure checked and report that she had elevated blood pressures while in hospital Plan of Treatment: follow up in 4 weeks at [facility] for post check.
[2019-12-02 11:17] VITALS: BP 98/58
[2019-12-02 13:37] LABS: HEPATITIS C VIRUS AB <0.1 s/co ratio (0.0-0.9)
[2019-12-03 07:21] LABS: HEPATITS B SURFACE ANTIGEN Negative (Negative)
--- NOTE | 2019-12-03 10:18 | Delivery Summary ---
Del Sum A-C Datetime Report Generated by CPN: 12/03/2019 10:18 DELIVERY PERSONNEL DELIVERY PERSONNEL: [id number] Delivery Doctor:: Delfina Camarillo MD Labor and Delivery Nurse:: Liss Cramer RNmajor account representative Nurse:: Nicolasa Carmona RN Lead Rider/IRON MELTER: Angie Collins CST Lead Rider/IRON MELTER: Caitlin Longoria CST Additional Personnel: : Sallie Elizabeth RN MATERNAL INFORMATION Delivery Anesthesia: None Medications After Delivery: Pitocin 30 Units in 500ml NS/D5W Maternal Complications: Other Complication Details: no PNC, didn't know that she was Provider Comments: Called to room as patient feeling pressure to push and meconium fluid noted. On Cervical assessment noted to be complete and +3 station. She pushed through a couple of contractions but they were 5 minutes appart or more. Pitocin started low dose and she pushed through two more contractions delivering a viable female from [facility]. vigorous at delivery. Oral and nasal suctioning. Cord clamping delayed for 30 seconds and then it was doubly clamped and cut. placed maternal chest. Both mother and infant stable LABOR SUMMARY No. Babies in Womb: 1 Attempted: No Labor Anesthesia: None LABOR INFORMATION Reason for Induction: Not Applicable Onset of Labor: 11/29/2019 23:00 Complete Dilatation: 11/30/2019 10:11 Oxytocin: N/A Group B Beta Strep: unknown Group B Beta Strep: 1 NO GROUP B STREPTOCOCCUS RECOVERED Antibiotics # of Doses: 1 Antibiotics Time of Last Dose: 11/30/2019 12:07 Name of Antibiotic Given: Clindamycin 900 mg Steroids Given: None Reason Steroids Not Administered: Not Applicable MEMBRANES Membranes Rupture Method: Spontaneous Rupture of Membranes: 11/30/2019 02:30 Amniotic Fluid Color: Moderate Meconium Amniotic Fluid Amount: Small Amniotic Fluid Odor: Normal VAGINAL DELIVERY Episiotomy: None Laceration #1: Perineal Laceration Repair: Yes Laceration Repair Note: Repaired with 3-0 chromic on an SH in a running fashion. The laceration was barely a second degree laceration of perinuem Sponge Count Correct: Yes Sharps Count Correct: Yes CSECTION DELIVERY Primary Indication: N/A Secondary Indication: N/A CSection Incidence: N/A Labor: N/A Elective: N/A CSection Incision: N/A BABY A INFORMATION Infant Delivery Date/Time: 11/30/2019 10:34 Method of Delivery: Vaginal Nurse Controlled Delivery: No Born in Route : No : N/A Forceps: N/A Vacuum Extraction: N/A Shoulder Dystocia : No PRESENTATION/POSITION BABY A Presentation: Cephalic Cephalic Presentation: Vertex Vertex Position: Right Occipital Anterior Breech Presentation: N/A PLACENTA INFORMATION BABY A Placenta Delivery Time : 11/30/2019 10:43 Placenta Method of Delivery: Manual Removal Placenta Status: Delivered SCORES BABY A Heart Rate 1 min: >100 bpm Resp Effort 1 min: Good Cry Reflex Irritability 1 min: Cough or Sneeze or Pulls Away Muscle Tone 1 min: Active Motion Color 1 min: Blue/Pale Resuscitation Effort 1 min: Tactile Stimulation Heart Rate 5 min: >100 bpm Resp Effort 5 min: Good Cry Reflex Irritability 5 min: Cough or Sneeze or Pulls Away Muscle Tone 5 min: Active Motion Color 5 min: Body [place], Extremities Blue Resuscitation Effort 5 min: N/A INFORMATION BABY A Gestational Age at Delivery: 39.3 Outcome : Liveborn Condition : Stable Sex: Female WEIGHT/LENGTH BABY A Birthweight (gm): 3985 Infant Length (in): 20.75 CORD INFORMATION BABY A No. Cord Vessels: 3 Nuchal Cord : N/A Cord Blood Taken: Yes-For Storage (Mom's Blood type +) Infant Suction: None ASSESSMENT BABY A Complications: None Physical Findings at Delivery: Within Normal Limits Infant Respirations: Appears Normal Skin to Skin: Yes Delivery Of Shopping News/ALS Called : No Infant Care By: Yuni Lopez RN Transferred To: Remains with Mother SIGNATURES Signature: with User ID: [email or web address] : with User ID: [email or web address]
--- NOTE | 2019-12-03 10:19 | Admission Physical ---
Datetime Report Generated by CPN: 12/03/2019 10:18 CURRENT ADMISSION Hx Assessment: No Care Chief Complaint: Uterine Contractions; Suspected Ruptured Membranes Chief Complaint Other: at 39.3 weeks EGA who came to ED today with abdominal pain since last night in the night. She thoought she was having GB attack or other abdominal issue but when US done, a term IUP noted. Patient reports she did not know she was and has had no PNC. SHe has hx of one prior 24 years ago. Admit Impression : Term, Intrauterine ; Active Labor; Ruptured Membranes Admit Plan: Admit to Unit; Initiate Labor Protocol ALLERGIES Medication Allergies: Yes Medication Allergies: PCN Medication Allergies: Penicillins (11/30/2019); benzonatate (11/30/2019); pseudoephedrine (11/30/2019); diphenhydramine (11/30/2019); triprolidine (11/30/2019) Latex: No Latex Allergies OBSTETRICAL HISTORY : 2 Para: 1 Term: 1 : 0 SAB: 0 IAB: 0 Ectopic: 0 Livin Cesareans: 0 VBACs: 0 Multiple Births: 0 Gestational Diabetes: No Rh Sensitization: No Incompetent Cervix: No BENJIE: No Infertility: No ART Treatment: No Uterine Anomaly: No IUGR: No Hx Previous C/S: No Macrosomia: No Hx Loss/Stillborn: No PIH: No Hx : No Placenta Previa/Abruption: No Depression/PP Depression: No PTL/PROM: No Post Hemorrhage: No Current Procedures: None Obstetrical History Comments: G1- 02/17/1995 G2- current NPNC didnt know was SEE RECORDS Alcohol: Yes Alcohol Frequency: Occasional Alcohol Comments: pt states that she has an occasional wine cooler Marijuana : No Cocaine: No Other Illicit Drugs: No Cigarettes: Former Smoker. [id number] Cigarette Comments: quit 2016 MEDICAL HISTORY Diabetes: No Blood Transfusion: No Pulmonary Disease (Asthma, TB): No Breast Disease: No Hypertension: No Order Clerk Surgery: No Heart Disease: No Hosp/Surgery: No Autoimmune Disorder: No Anesthetic Complications: No Kidney Disease: No Abnormal Pap Smear: No Neuro/Epilepsy: No Psychiatric Disorders: No Other Medical Diseases: No Hepatitis/Liver Disease: No Significant Family History: No Varicosities/Phlebitis: No Trauma/Violence : No Thyroid Dysfunction: No Medical History Comments: skin biopsy on upper back, gastric sleeve in 2019. tattoo removal, wisdom teeth removal INFECTIOUS HISTORY Gonorrhea: No Genital Herpes: No Chlamydia: No Tuberculosis: No Syphilis: No Hepatitis: No HIV/AIDS Exposure: No Rash or Viral Illness: No HPV: No PHYSICAL EXAM General: Normal HEENT: Normal Neurologic: Normal Thyroid: Normal Heart: Normal Lungs: Normal Breast: Normal Back: Normal Abdomen: Normal Genitourinary Exam: Normal Extremities: Normal DTRs: Normal Pelvic Type: Adequate Vital Signs: Reviewed Details Vital Signs: Severely elevated b/p noted and Labetolol 20mg IV given VAGINAL EXAM Dilatation: 10 Effacement: 100 Station: 3 Contraction Comments: Regularly Q 4 -5minutes MEMBRANES Membranes: Ruptured Amniotic Fluid Color: Meconium, Light FETUS A Monitoring: External US FHR- Baseline: 125 Variability: Moderate 6-25bpm Accelerations: 15X15 Decelerations: None FHR Category: Category I Presentation: Vertex Admit Comment: Called to room as patient feeling pressure to push and meconium fluid noted. -Admit to LDR _NPO and IVFs -CEFM and toco -Hx x1, will prepare for On Cervical assessment noted to be complete and +3 station. She pushed through a couple of contractions but they were 5 minutes appart or more. Pitocin started low dose and she pushed through two more contractions delivering a viable female infant from [facility] presention. Infant vigorous at delivery. Oral and nasal suctioning. Cord clamping delayed for 30 seconds and then it was doubly clamped and cut. placed maternal chest. Both mother and stable PLANS FOR LABOR AND DELIVERY Labor and Delivery: None Pain Management: Epidural Feeding Preference: Breast Benefit of Breast Feed Discussed: Yes Circumcision: N/A INFORMED CONSENT Informed Consent Obtained: Vaginal Delivery; Section Delivery; Induction of Labor; Vacuum/Forceps Assist; Risks, Benefits and Alternatives Discussed Signature: with User ID: Mirela : with User ID: [email or web address]
== END 2019-12-02 13:13 | disposition home or self-care (01) | DRG 807 ==
LOC: ER 06:45 → LR 10:19 → 2S 13:36
PROVIDERS: ADMIT Obstetrics & Gynecology; ATTEND Obstetrics & Gynecology
PROC: 10E0XZZ Delivery of Products of Conception, External Approach (ICD-10-PCS; principal; 2019-11-30)
PROC: 0KQM0ZZ Repair Perineum Muscle, Open Approach (ICD-10-PCS; 2019-11-30)
PROC: 3E0234Z Introduction of Serum, Toxoid and Vaccine into Muscle, Percutaneous Approach (ICD-10-PCS; 2019-12-02)
PROC: 3E02340 Introduction of Influenza Vaccine into Muscle, Percutaneous Approach (ICD-10-PCS; 2019-12-02)
DX: O77.0 Labor and delivery complicated by meconium in amniotic fluid (principal); Z37.0 Single live birth; O99.824 Streptococcus B carrier state complicating childbirth; Z3A.39 39 weeks gestation of pregnancy; Z98.84 Bariatric surgery status; O70.1 Second degree perineal laceration during delivery; O99.892 Other specified diseases and conditions complicating childbirth; R03.0 Elevated blood-pressure reading, without diagnosis of hypertension; Z88.0 Allergy status to penicillin; Z88.8 Allergy status to other drugs, medicaments and biological substances; Z87.891 Personal history of nicotine dependence; Z23 Encounter for immunization
CPT/HCPCS: 36415; 76705; 76815; 80053; 80076; 80307; 81001; 82570; 83690; 84156; 84702; 85025; 85027; 86592; 86701; 86762; 86803; 86804; 86850; 86900; 86901; 87081; 87340; 87491; 87591; 88307; 90471; 90686; 90715; 99284; G0008; J2590; J3490

== ENCOUNTER 2019-12-07 13:51 | Emergency (ER) | payer MEDICAID ==
--- NOTE | 2019-12-07 14:23 | ER Document Report ---
ED Medical Screen (RME) - General Chief Complaint: Chest Pain > 30 Stated Complaint: NAUSEA/VOMITING Time Seen by Provider: 12/07/19 14:12 Primary Care Provider: HYACINTH OVALLES FNP-C [Primary Care Provider] - Follow up as needed Mode of Arrival: Ambulatory Information source: Patient Notes: 44-year-old female presented to ED for complaint of upper chest pain back pain abdominal cramping leg cramping. She states last night after she she ate she felt extremely full. She states during the night she started having pain to her upper back that radiated all the way around to her chest. She started having abdominal cramping and leg cramping. She states about 6:00 this morning she started with nausea and vomiting. She states she has vomited at least 8 or 9 times today and now she is dry heaving. She states she did get the gastric sleeve done in 2019 and it felt like the fullness from when she had a gastric sleeve. Before all the other symptoms started. States she does have chronic back pain but this does not feel like that. She states she also had a baby 7 days ago vaginal delivery. Did consult Dr. Wallace. He stated get the normal blood work get a plain film of the abdomen now and then order CTA of chest and CT with IV and oral contrast of abdomen. She also needs a urine. I have greeted and performed a rapid initial assessment of this patient. A comprehensive ED assessment and evaluation of the patient, analysis of test results and completion of medical decision making process will be conducted by an additional ED providers. TRAVEL OUTSIDE OF THE [place] IN LAST 30 DAYS: No - Related Data Allergies/Adverse Reactions: benzonatate [From Tessalon Perles] Allergy (Unknown, Verified 11/30/19 07:11) diphenhydramine [From Benadryl] Allergy (Unknown, Verified 11/30/19 07:11) Penicillins Allergy (Unknown, Verified 11/30/19 07:11) pseudoephedrine [From Sudafed] Allergy (Unknown, Verified 11/30/19 07:11) triprolidine [From Actifed] Allergy (Unknown, Verified 11/30/19 07:11) Physical Exam - Vital signs Vitals: Temp Pulse Resp BP Pulse Ox 97.8 F 83 18 157/98 H 98 12/07/19 13:57 12/07/19 13:57 12/07/19 13:57 12/07/19 13:57 12/07/19 13:57 Course - Vital Signs Vital signs: Temp Pulse Resp BP Pulse Ox 97.8 F 83 18 157/98 H 98 12/07/19 13:57 12/07/19 13:57 12/07/19 13:57 12/07/19 13:57 12/07/19 13:57 Doctor's Discharge - Discharge Referrals: HYACINTH OVALLES FNP-C [Primary Care Provider] - Follow up as needed
--- NOTE | 2019-12-07 15:08 | RADIOLOGY REPORT (SQ) ---
EXAM DESCRIPTION: ACUTE ABDOMEN SERIES IMAGES COMPLETED DATE/TIME: 12/07/2019 2:39 pm REASON FOR STUDY: Nausea vomiting acute abdominal pain 6 days postpa COMPARISON: None. NUMBER OF VIEWS: Four views. TECHNIQUE: Frontal and lateral chest, supine abdomen and upright/decubitus abdomen radiographic imag es acquired. LIMITATIONS: None. FINDINGS: CHEST: Lungs clear of infiltrates. Heart size normal without failure. No hilar or mediast inal masses. FREE AIR: None. No abnormal gas collections. BOWEL GAS PATTERN: Nonobstructive pattern. No dilated loops or air fluid levels. CALCIFICATIONS: No suspicious calcifications. HARDWARE: None in the abdomen. SOFT TISSUES: No gross mass or suggestion of organomegaly. BONES: No acute fracture. No worrisome bone lesions. OTHER: No other significant finding. IMPRESSION: No acute pulmonary process. Nonobstructive bowel gas pattern. TECHNICAL DOCUMENTATION: JOB ID: [id number] [employer]- All Rights Reserved Reading location - IP/workstation name: [email or web address]
[2019-12-07 15:18] LABS: ABSOLUTE BASOPHILS # (AUTO) 0.1 10^3/uL (0.0-0.2); ABSOLUTE MONOCYTES (AUTO) 0.5 10^3/uL (0.1-1.4); ABSOLUTE NEUT (AUTO) 12.4 10^3/uL (1.7-8.2); BASOPHILS % (AUTO) 0.5 % (0-2); HEMATOCRIT 43.7 % (36.0-47.0); LYMPHOCYTES % (AUTO) 6.9 % (13-45); MEAN CORPUSCULAR HEMOGLOBIN 28.6 pg (27.0-33.4); MEAN CORPUSCULAR HGB CONC 34.2 g/dL (32.0-36.0); MEAN CORPUSCULAR VOLUME 84 fl (80-97); MONOCYTES % (AUTO) 3.8 % (3-13); PLATELET COUNT 482 10^3/uL (150-450); RED BLOOD COUNT 5.23 10^6/uL (3.72-5.28); RED CELL DISTRIBUTION WIDTH 14.9 % (11.5-14.0); SEGMENTED NEUTROPHILS % (AUTO) 88.8 % (42-78); TOTAL CELLS COUNTED % (AUTO) 100 %
[2019-12-07 15:38] LABS: ALKALINE PHOSPHATASE 429 U/L (38-126); ANION GAP 15 (5-19); ASPARTATE AMINO TRANSFERASE 200 U/L (14-36); BILIRUBIN,DIRECT 3.6 mg/dL (0.0-0.4); BILIRUBIN,TOTAL 4.6 mg/dL (0.2-1.3); BLOOD UREA NITROGEN 8 mg/dL (7-20); CALCIUM 9.4 mg/dL (8.4-10.2); CARBON DIOXIDE 20 mmol/L (22-30); CHLORIDE 95 mmol/L (98-107); GLUCOSE 155 mg/dL (75-110); POTASSIUM 4.2 mmol/L (3.6-5.0); TOTAL PROTEIN 7.5 g/dL (6.3-8.2)
[2019-12-07 15:45] LABS: APPEARANCE,URINE CLOUDY; BILIRUBIN,URINE NEGATIVE (NEGATIVE); COLOR,URINE AMBER; GLUCOSE, URINE 50 mg/dL (NEGATIVE); KETONES,URINE 20 mg/dL (NEGATIVE); LEUKOCYTE ESTERASE,URINE TRACE (NEGATIVE); NITRITE,URINE NEGATIVE (NEGATIVE); PROTEIN,URINE >=500 mg/dL (NEGATIVE); URINE SPECIFIC GRAVITY 1.015
[2019-12-07] MEDS ORDERED: ONDANSETRON 4 MG TAB.RAPDIS PO ONE (16:21)
[2019-12-07] MEDS ORDERED: METOCLOPRAMIDE HCL INJ/PF 10 MG/2 ML SDV IV ONE (18:39)
[2019-12-07] MEDS ORDERED: NORMAL SALINE 1000 ML 1,000 ML IV ONE (18:40)
[2019-12-07] MEDS ORDERED: FENTANYL CITRATE INJ/PF 100 MCG/2 ML AMPUL IV ONE (18:40)
--- NOTE | 2019-12-07 18:46 | ER Document Report ---
ED General - General Mode of Arrival: Ambulatory TRAVEL OUTSIDE OF THE [place] IN LAST 30 DAYS: No <SUNITHA ARAUZ - Last Filed: 12/07/19 19:02> <ROSALVA VARGAS IV - Last Filed: 12/08/19 01:42 EST> - General Chief Complaint: Chest Pain Stated Complaint: NAUSEA/VOMITING Time Seen by Provider: 12/07/19 14:12 Primary Care Provider: HYACINTH OVALLES FNP-C [Primary Care Provider] - Follow up as needed - HPI Notes: Chief complaint: Abdominal pain, nausea and vomiting History of present illness: 44-year-old female 5 days (normal spontaneous vaginal delivery) currently breast-feeding presents with complaint of midepigastric discomfort radiating through to her mid back starting overnight with associated nausea and multiple episodes of vomiting. She has had some slight chills but says she is not aware of an overt fever. She denies any prior history of gallbladder problems. She previously had a gastric sleeve procedure a number of years ago. Presently complaining of 8/10 midepigastric discomfort radiating in the back. Multiple episodes of vomiting prior to arrival. Ongoing nausea. (SUNITHA ARAUZ) - Related Data Allergies/Adverse Reactions: benzonatate [From Tessalon Perles] Allergy (Unknown, Verified 11/30/19 07:11) diphenhydramine [From Benadryl] Allergy (Unknown, Verified 11/30/19 07:11) Penicillins Allergy (Unknown, Verified 11/30/19 07:11) pseudoephedrine [From Sudafed] Allergy (Unknown, Verified 11/30/19 07:11) triprolidine [From Actifed] Allergy (Unknown, Verified 11/30/19 07:11) Past Medical History - General Information source: Patient - Social History Smoking Status: Former Smoker Frequency of alcohol use: Rare Drug Abuse: None Family History: Reviewed & Not Pertinent - Past Medical History Cardiac Medical History: Reports: None Pulmonary Medical History: Reports: None Neurological Medical History: Reports: Hx Migraine Endocrine Medical History: Denies: Hx Diabetes Mellitus Type 1, Hx Diabetes Mellitus Type 2 Renal/ Medical History: Reports: None Past Surgical History: Reports: Hx Gastric Bypass Surgery - Gastric sleeve procedure <SUNITHA ARAUZ - Last Filed: 12/07/19 19:02> Physical Exam <SUNITHA ARAUZ - Last Filed: 12/07/19 19:02> - Vital signs Vitals: Temp Pulse Resp BP Pulse Ox 97.8 F 83 18 157/98 H 98 12/07/19 13:57 12/07/19 13:57 12/07/19 13:57 12/07/19 13:57 12/07/19 13:57 - Notes Notes: GENERAL: Well-developed well-nourished appearing moderately uncomfortable. SKIN: Mild jaundice. Good turgor no rashes. HEAD: Normocephalic atraumatic. EYES: PERRLA. EOMI. scleral icterus present. EARS: CANALS AND TMS CLEAR. NOSE: CLEAR. MOUTH: Moist mucosa. Good dentition. No stridor or edema. No drooling. NECK: Supple. No masses or thyromegaly. No adenopathy. Carotids 2+ without bruits. No JVD. BACK: Symmetrical without tenderness. Breasts: Engorged currently lactating. CHEST: Respirations unlabored. Breath sounds clear and symmetrical. HEART: Regular rhythm. No murmur gallop or rub. ABDOMEN: Mild epigastric tenderness on deep palpation. Soft without masses, organomegaly or rebound. Bowel sounds normally active. No bruits. GENITALIA: Deferred. EXTREMITIES: No edema. No calf tenderness. Cap refill less than 1.5 seconds. Dorsalis pedis and posterior tibial pulses 3+ and symmetrical. NEUROLOGICAL: GCS 15. Alert and oriented x3. Fluent speech. Cranial nerves II through XII intact. Sensorimotor and cerebellar normal. Normal tone. PSYCHIATRIC: Appropriate affect. (SUNITHA ARAUZ) Course - Laboratory Result Diagrams: 12/07/19 14:54 12/07/19 14:54 <SUNITHA ARAUZ - Last Filed: 12/07/19 19:02> - Laboratory Result Diagrams: 12/07/19 14:54 12/07/19 14:54 - Diagnostic Test Radiology reviewed: Reports reviewed - Consults Dr. Burt Time consulted: 22:00 - Dr. Burt stated that given the fact that the total bilirubin is 4.6, the patient needs to be transferred out to another facility where they can perform a ERCP. Dr. Freeman, Hospitalist, [facility] Time consulted: 22:58 - Dr. Freeman excepted patient for transfer to his facility <ROSALVA VARGAS IV - Last Filed: 12/08/19 01:42 EST> - Re-evaluation Re-evalutation: 12/07/19 19:07 White count is 14,000. LFTs remarkable for bili of 4.6 AST 200 ALT 93 alk phosphatase 429. Gallbladder ultrasound has been requested with results pending. We will keep the patient n.p.o. She is receiving IV fluids and IV fentanyl and metoclopramide. (SUNITHA ARAUZ) 12/07/19 22:57 Results of ED MSE discussed with patient consult with Dr. Burt and his recommendation of transfer for ERCP also discussed with patient all questions were answered. 12/08/19 01:41 EST Transport has arrived to take the patient to [facility]. This MD went to the bedside to examine the patient prior to transfer. Patient is awake and alert, in no acute distress, and appears nontoxic. Patient appears stable for transfer. (ROSALVA VARGAS IV) - Vital Signs Vital signs: Temp Pulse Resp BP Pulse Ox 97.3 F 83 18 116/73 94 12/08/19 00:00 12/07/19 13:57 12/08/19 00:01 12/08/19 00:00 12/08/19 00:01 - Laboratory Laboratory results interpreted by me: 12/07/19 12/07/19 12/07/19 14:54 14:54 15:05 WBC 14.0 H RDW 14.9 H Plt Count 482 H Lymph % (Auto) 6.9 L Absolute Neuts (auto) 12.4 H Seg Neutrophils % 88.8 H Sodium 129.6 L Chloride 95 L Carbon Dioxide 20 L Creatinine 0.51 L Glucose 155 H Total Bilirubin 4.6 H Direct Bilirubin 3.6 H AST 200 H ALT 93 H Alkaline Phosphatase 429 H Urine Protein >=500 H Urine Glucose (UA) 50 H Urine Ketones 20 H Urine Blood SMALL H Urine Urobilinogen 4.0 H Ur Leukocyte Esterase TRACE H - Consults Dr. Burt Reason for consultation: 12/07/19 22:00 Concern for cholecystitis, common bile duct is 2.4 mm (ROSALVA VARGAS IV) Dr. Freeman, Hospitalist, [facility] Reason for consultation: 12/07/19 22:58 Dr. Burt, surgeon on-call at this facility, recommended that the patient be transferred to a facility that has ERCP availability (ROSALVA VARGAS IV) Discharge <SUNITHA ARAUZ - Last Filed: 12/07/19 19:02> <ROSALVA VARGAS IV - Last Filed: 12/08/19 01:42 EST> - Discharge Clinical Impression: Cholecystitis, Total bilirubin, elevated Condition: Stable Disposition: [facility] Referrals: HYACINTH OVALLES FNP-C [Primary Care Provider] - Follow up as needed
--- NOTE | 2019-12-07 20:54 | RADIOLOGY REPORT (SQ) ---
EXAM DESCRIPTION: Right upper quadrant ultrasound CLINICAL HISTORY: 44 years Female; abd. pain, jaundice TECHNIQUE: Abdominal ultrasound was performed. COMPARISON: Right upper quadrant ultrasound November 30, 2019 FINDINGS: Pancreas: Pancreas is not seen secondary to overlying bowel gas. Liver: In the posterior aspect of the liver is a hypoechoic poorly seen area measuring 4.8 x 4.1 x 4.1 cm. This may be a solid mass. This was not present on the previous exam.. The liver measures 14.3 cm in length and overall is not well seen. Portal vein is patent with hepatopedal flow. Gallbladder: The gallbladder is distended and contains stones and sludge. Common bile duct: 2.4 mm. Right kidney: The kidney measures 11.3 x 5.1 x 7.3 cm. Echogenicity is normal.. No hydronephrosis. Aorta:Visualized portions are within normal limits. IVC: Visualized portions are within normal limits. Ascites: No free fluid. IMPRESSION: 1. Cholelithiasis with stones and sludge. 2. Possible hypoechoic mass in the posterior aspect of the liver versus artifact. This area is not well seen.
[2019-12-07] MEDS ORDERED: CEFEPIME 2 GM/D5W RTU 2 GM/50 ML RTUPB IV ONE (22:02)
[2019-12-07] MEDS ORDERED: METRONIDAZOLE 500 MG/NS RTU 500 MG/100 ML RTUPB IV ONE (22:30)
[2019-12-08 01:52] VITALS: BP 110/68
== END 2019-12-08 01:52 | disposition short-term general hospital (02) ==
LOC: ER 13:51
DX: O99.63 Diseases of the digestive system complicating the puerperium (principal); K80.10 Calculus of gallbladder with chronic cholecystitis without obstruction; O90.89 Other complications of the puerperium, not elsewhere classified; R17 Unspecified jaundice; R11.2 Nausea with vomiting, unspecified; R10.9 Unspecified abdominal pain; R10.816 Epigastric abdominal tenderness; R68.83 Chills (without fever); O99.845 Bariatric surgery status complicating the puerperium; Z87.891 Personal history of nicotine dependence; Z88.8 Allergy status to other drugs, medicaments and biological substances; Z88.0 Allergy status to penicillin; Z20.828 Contact with and (suspected) exposure to other viral communicable diseases
CPT/HCPCS: 99285; 96361; 96375; 96365; 96367; 36415; 87040; 87086; 83690; 85025; 87635; 87088; 80053; 81001; 87186; 74022; 76705; S0119; J3010; J2765; J3490; J7030; J0692; C9803

== ENCOUNTER 2020-02-14 05:32 | Day surgery (SDC) | payer MEDICAID ==
[2020-02-11 10:51] LABS: HEMATOCRIT 34.1 % (36.0-47.0); HEMOGLOBIN 11.4 g/dL (12.0-15.5); MEAN CORPUSCULAR HEMOGLOBIN 26.4 pg (27.0-33.4); MEAN CORPUSCULAR HGB CONC 33.4 g/dL (32.0-36.0); MEAN CORPUSCULAR VOLUME 79 fl (80-97); PLATELET COUNT 317 10^3/uL (150-450); RED BLOOD COUNT 4.31 10^6/uL (3.72-5.28); RED CELL DISTRIBUTION WIDTH 15.2 % (11.5-14.0); WHITE BLOOD COUNT 6.5 10^3/uL (4.0-10.5)
[2020-02-11 10:57] LABS: APPEARANCE,URINE CLOUDY; BILIRUBIN,URINE NEGATIVE (NEGATIVE); COLOR,URINE YELLOW; GLUCOSE, URINE NEGATIVE (NEGATIVE); KETONES,URINE NEGATIVE (NEGATIVE); LEUKOCYTE ESTERASE,URINE MODERATE (NEGATIVE); NITRITE,URINE NEGATIVE (NEGATIVE); PROTEIN,URINE NEGATIVE (NEGATIVE); UROBILINOGEN,URINE NEGATIVE mg/dL (<2.0)
[~2020-02-14 05:32] MED LIST: LACTATED RINGERS 1000 ML IV PRN; LIDOCAINE 0.5% INJ-PF (5 MG/ML) 50 ML SDV SUBCUT PRN
[2020-02-14] MEDS ORDERED: FENTANYL CITRATE INJ/PF 100 MCG/2 ML AMPUL ONE (06:46)
[2020-02-14] MEDS ORDERED: SUGAMMADEX SODIUM 200 MG/2 ML SDV IV ONE (06:46)
[2020-02-14] MEDS ORDERED: PROPOFOL INJ 200 MG/20 ML VIAL IV ONE (06:46)
[2020-02-14] MEDS ORDERED: MIDAZOLAM 2 MG/2 ML INJ ONE (06:46)
[2020-02-14] MEDS ORDERED: LIDOCAINE 2% INJ (20 MG/ML) 20 ML MDV ONE (06:49)
[2020-02-14] MEDS ORDERED: MEPERIDINE HCL/PF INJ 25 MG/1 ML DISP.SYRIN IV PRN (08:13)
[2020-02-14] MEDS ORDERED: FENTANYL CITRATE INJ/PF 100 MCG/2 ML AMPUL IV PRN ×3 (08:13)
[2020-02-14] MEDS ORDERED: OXYCODONE-ACETAMINOPHEN 5-325 MG TABLET PO PRN ×2 (08:13)
[2020-02-14] MEDS ORDERED: PROMETHAZINE HCL INJ 25 MG/1 ML VIAL IV PRN ×2 (08:13)
[2020-02-14] MEDS ORDERED: MORPHINE SULFATE 10 MG/ML INJ IV PRN (08:13)
[2020-02-14] MEDS ORDERED: EPHEDRINE SULFATE INJ 50 MG/1 ML AMPULE ONE (09:03)
--- NOTE | 2020-02-14 09:07 | Operative Report ---
Operative Report DATE OF SURGERY: 02/14/20 PREOPERATIVE DIAGNOSIS: Unwanted fertility. Multiparity. Obesity POSTOPERATIVE DIAGNOSIS: Same as above OPERATION: Laparoscopic bilateral tubal ligation with filshie clips. Biopsy of peritoneal lesions-possible endometriosis SURGEON: DEMETRIS HOBSON ANESTHESIA: GA TISSUE REMOVED OR ALTERED: biopsy of peritoneum-possible endometriosis COMPLICATIONS: None ESTIMATED BLOOD LOSS: 5 ml INTRAOPERATIVE FINDINGS: Normal appearing uterus and fallopian tubes. Right ovary with small simple appearing cyst. LEft ovary with one spot hemosiderin deposit appearance consistent with endometriosis. There were also similar deposits anterior to the uterus along peritoneal lining overlying bladder and right adnexa. PROCEDURE: IV fluids: per anesthesia record Urinary output: 75 cc emptied prior to procedure: dark yellow color Findings: Normal-appearing uterus bilateral fallopian tubes. Right ovary with small simple appearing cyst. Left ovary with small hemosiderin deposit otherwise normal. There are hemosiderin deposits along peritoneal lining overly ing the bladder and right adnexa liver edge noted and appears normal Position: To recovery room in stable condition Description of procedure: The patient was taken to the operating room and general anesthesia was administered and found to be adequate. She was then placed on the OR table in the dorsal lithotomy position. The Patient was prepped and draped in usual sterile fashion. Timeout was taken. A bivalve speculum was used to visualize the cervix. The anterior lip of the cervix was then grasped with a ring forcep and an acorn uterine manipulator was placed. At this time attention was turned of the patient's abdomen and sterile gloves were donned a 1 cm infra umbilical incision was made horizontally and carried down to the level of the rectus fascia. The rectus fascia was then grasped with 2 Radha clamps elevated and incised with Cerrato scissors. A digital sweep was done noting entry into the peritoneum. The fascia was tagged bilaterally with 0-vicryl suture. A #10 Rios trocar was positioned and CO2 gas was used to insufflate the abdomen to a quantity sufficient for the laparoscopy. The laparoscope was inserted and a survey was done of the abdomen pictures were obtained. Findings noted normal anatomy. The right fallopian tube was identified and traced to its fimbriated end. The right ovary was noted as above. A Filshie clip was then placed approximately 1 to 2 cm from the uterine cornu across the right fallopian tube. The Filshie clip was noted to surround the tube in its entirety good blanching and hemostasis was noted. The left fallopian tube was then traced to its fibriated end and a Filshie clip was placed 1 to 2 cm from the uterine cornu on the left fallopian tube. The Filshie clip was noted to surround the tube in its entirety with good blanching and hemostasis was noted. The hemosiderin deposits noted on peritoneal lining overylying the right adnexa were biopsied. Theses will be sent to lab for pathological anaylsis. Hemostasis noted.Pictures were obtained. At this point the procedure was terminated. All instrument removed from the patient's abdomen and CO2 gas was allowed to escape. The infraumbilical port was removed. The fascia was closed with 0 Vicryl suture. The skin was closed with 3-0 Monocryl in a series of interrupted stitiches. The skin incision was then clean dried and Dermabond was applied over the skin incision. All instrument sponge and needle counts were correct x3 for the procedure the patient tolerated the procedure well. She will proceed to recovery room in stable condition
[2020-02-14] MEDS ORDERED: OXYCODONE-ACETAMINOPHEN 5-325 MG TABLET ONE (09:35)
[2020-02-14] MEDS ORDERED: DEXAMETHASONE SOD PHOSPHATE INJ 4 MG/1 ML VIAL ONE (10:34)
[2020-02-14] MEDS ORDERED: SUCCINYLCHOLINE CHLORIDE INJ 200 MG/10 ML VIAL ONE (10:34)
[2020-02-14] MEDS ORDERED: GLYCOPYRROLATE 1 MG/5 ML VIAL ONE (10:34)
[2020-02-14] MEDS ORDERED: ONDANSETRON HCL INJ/PF 4 MG/2 ML SDV ONE (10:34)
[2020-02-14] MEDS ORDERED: ROCURONIUM BROMIDE INJ 50 MG/5 ML VIAL IV ONE (10:34)
--- NOTE | 2020-02-14 12:22 | Discharge Summary ---
Discharge Summary (SDC) - Discharge Final Diagnosis: Unwanted fertiltiy Obesity Endometreosis Date of Surgery: 02/14/20 Condition: Stable Forms: ASU Anesthesia D/C Instruction, Discharge POC-Surgical Service Treatment or Instructions: Walk frequently Regular diet No heavy lifting > 10 lbs No intercourse until post-op visit May shower as needed and pat incision dry No driving a car until narcotic prescriptions stopped and can make sudden movements Prescriptions: Ibuprofen [Motrin 800 mg Tablet] 800 mg PO Q8H PRN 10 Days #30 tab PRN Reason: Oxycodone HCl/Acetaminophen [Percocet 5-325 mg Tablet] 1 tab PO Q4 5 Days #24 tablet Referrals: DEMETRIS HOBSON MD [ACTIVE PROVISIONAL STAFF] - (2 weeks ) Respiratory Treatments at Home: Deep Breathing/Coughing Discharge Activity: Activity As Tolerated, Balance Activity w/Rest Home Care Assistance: None Needed Report the Following to Your Physician Immediately: Shortness of Breath, Nausea, Vomiting, Increase in Pain, Signs of Hyperglycemia, Fever over 101 Degrees, Unusual Bleeding
[2020-02-14 12:26] VITALS: BP 147/80
== END 2020-02-14 10:30 | disposition home or self-care (01) ==
LOC: OROUT 05:32
PROVIDERS: ATTEND Obstetrics & Gynecology
DX: Z30.2 Encounter for sterilization (principal); N80.3 Endometriosis of pelvic peritoneum; N83.291 Other ovarian cyst, right side; E66.9 Obesity, unspecified; Z01.812 Encounter for preprocedural laboratory examination; Z20.822 Contact with and (suspected) exposure to COVID-19; Z98.84 Bariatric surgery status; G47.33 Obstructive sleep apnea (adult) (pediatric); Z87.891 Personal history of nicotine dependence; Z79.899 Other long term (current) drug therapy
CPT/HCPCS: 36415; 85027; 87635; 81025; 81001; 88305 ×2; 00851; 58671; 49321; J2250; J3490 ×5; J1100; J3010; J0330; J2405; J2704; C9803; 851